=== PATIENT | male | born 1970 | race Caucasian/White ===

== ENCOUNTER 2017-04-07 00:32 | Emergency (ER) | payer MEDICAID ==
[~2017-04-07] VITALS: Ht 180.3 cm; Wt 100.0 kg
[2017-04-07] MEDS ORDERED: MORPHINE SULFATE 4 MG/ML CPJ (NOT FOR IM USE) IV STA (00:54)
[2017-04-07] MEDS ORDERED: ONDANSETRON HCL 4MG/2ML VIAL IV STA (00:54)
[2017-04-07] MEDS ORDERED: SODIUM CHLORIDE 0.9% 1,000 ML IV ONE (00:54)
[2017-04-07 01:53] LABS: BASOPHILS % 0.5 % (0.0-2.0); EOSINOPHILS % 1.5 % (0.0-5.0); HEMATOCRIT. 35.5 % (42.0-52.0); HEMOGLOBIN. 12.2 g/dL (14.0-18.0); MEAN CORPUSCULAR HEMOGLOBIN 31.5 pg (28.0-32.0); MEAN CORPUSCULAR VOLUME 91.3 fL (80.0-94.0); MEAN PLATELET VOLUME 8.1 fl (7.4-10.4); MONOCYTES % 8.4 % (2.0-8.0); NEUTROPHILS % 63.6 % (40.0-76.0); PLATELET 273 x1000/uL (130-400); RED BLOOD CELL COUNT 3.89 mill/uL (4.7-6.1); RED CELL DISTRIBUTION WIDTH 14.5 % (11.6-14.6)
[2017-04-07 02:06] LABS: CARBON DIOXIDE 25 mEq/L (21-32); CHLORIDE 108 mEq/L (98-107)
[2017-04-07 02:07] LABS: ETHANOL BLOOD < 10 mg/dL; TROPONIN I < 0.02 ng/mL (0.00-0.04)
[2017-04-07] MEDS ORDERED: MIDAZOLAM HCL 2 MG/2 ML VIAL IV ONE (02:15)
[2017-04-07 06:20] VITALS: BP 99/70
== END 2017-04-07 06:25 | disposition left against medical advice (07) ==
LOC: ER 00:51 → EDBEDREQTM 03:50 → EDBEDREQ 03:50 → ER 06:25 → CANBEDREQ 07:09
DX: T42.4X1A Poisoning by benzodiazepines, accidental (unintentional), initial encounter (principal); G93.40 Encephalopathy, unspecified; F41.9 Anxiety disorder, unspecified; Y92.89 Other specified places as the place of occurrence of the external cause
CPT/HCPCS: 36415; 70450; 71010; 72125; 80053; 84484; 85025; 93005; 96361; 96374; 96375; 99291; G0482; J2250; J2270; J2405; J7030; Z7610

== ENCOUNTER 2018-11-20 18:04 | Emergency (ER) | payer MEDICAID ==
[~2018-11-20] VITALS: Ht 167.6 cm; Wt 78.0 kg
[2018-11-20 18:20] VITALS: BP 110/80
== END 2018-11-20 20:25 | disposition left against medical advice (07) ==
LOC: ER 18:22
DX: Z53.21 Procedure and treatment not carried out due to patient leaving prior to being seen by health care provider (principal)

== ENCOUNTER 2022-03-08 00:40 | Emergency (ER) | payer MEDICAID ==
[~2022-03-08] VITALS: Ht 167.6 cm; Wt 79.0 kg
[~2022-03-08 00:40] MED LIST: IBUP-2028 PO; METH-818 PO; OLAN10TA32 PO; QUET25TA PO; RMST15 PO; TOPUD PO; TRAM50TA3 PO; ZOLP5TAB2 PO
[2022-03-08 01:16] VITALS: BP 111/69
== END 2022-03-09 03:02 | disposition home or self-care (01) ==
LOC: ER 00:40
DX: I33.0 Acute and subacute infective endocarditis (principal); Z00.00 Encounter for general adult medical examination without abnormal findings; Z59.00 Homelessness unspecified; F41.9 Anxiety disorder, unspecified; Z79.899 Other long term (current) drug therapy; F11.20 Opioid dependence, uncomplicated
CPT/HCPCS: 99281

== ENCOUNTER 2022-03-16 20:38 | Emergency (ER) | payer MEDICAID ==
[~2022-03-16] VITALS: Ht 165.1 cm; Wt 83.5 kg
[2022-03-16] MEDS: KCL 20MEQ/100ML X 2 FOR TOTAL KCL 40MEQ/200ML IV SCH (01:45)
[2022-03-16] MEDS ORDERED: SODIUM CHLORIDE 0.9% 1,000 ML IV ONE (21:45)
[2022-03-16] MEDS ORDERED: MAGNESIUM/ALUMINUM HYDROXIDE/SIMETHICONE 30ML UDC PO ONE (22:00)
[2022-03-16] MEDS ORDERED: ONDANSETRON HCL 4MG/2ML INJ IV ONE (22:00)
[2022-03-16 22:22] LABS: BASOPHILS % 0.3 % (0.0-2.0); EOSINOPHILS % 5.4 % (0.0-5.0); HEMATOCRIT. 31.7 % (42.0-52.0); HEMOGLOBIN. 10.8 g/dL (14.0-18.0); LYMPHOCYTES % 22.7 % (20.0-50.0); MEAN CORPUSCULAR HEMOGLOBIN 31.4 pg (28.0-32.0); MEAN CORPUSCULAR VOLUME 92.5 fL (80.0-94.0); MEAN PLATELET VOLUME 7.6 fl (7.4-10.4); MONOCYTES % 9.6 % (2.0-8.0); PLATELET 242 x1000/uL (130-400); RED BLOOD CELL COUNT 3.43 mill/uL (4.7-6.1); RED CELL DISTRIBUTION WIDTH 14.3 % (11.6-14.6)
[2022-03-16 22:31] LABS: CHLORIDE 122 mEq/L (98-107)
[2022-03-16 22:37] LABS: ETHANOL BLOOD < 10 mg/dL
[2022-03-16] MEDS ORDERED: CALCIUM GLUCONATE 100MG/ML 10ML VIAL IV NR (23:00)
[2022-03-16] MEDS ORDERED: MAGNESIUM 1 G PREMIX 100 ML IV NR (23:00)
[2022-03-16] MEDS ORDERED: POTASSIUM CHLORIDE INJ 40 MEQ in DEXT 5% WATER 250 ML IV ONE (23:00)
[2022-03-16] MEDS ORDERED: DEXTROSE 50% WATER 50ML SYRINGE IV NR (23:00)
[2022-03-17] MEDS: KCL 20MEQ/100ML X 2 FOR TOTAL KCL 40MEQ/200ML IV SCH (02:08)
[2022-03-17 07:00] VITALS: BP 140/82
[2022-03-17] MEDS ORDERED: LACT-247 PO (10:18)
[2022-03-17] MEDS ORDERED: POTA-205 PO (10:19)
== END 2022-03-17 07:38 | disposition left against medical advice (07) ==
LOC: ER 20:38 → EDBEDREQ 03-17 05:35 → EDBEDREQDT 03-17 05:35 → EDBEDREQTM 03-17 05:35 → CANRESERV 03-17 07:17 → ENRESERV 03-17 07:17 → ER 03-17 07:38 → CANBEDREQ 03-17 08:05
DX: E87.8 Other disorders of electrolyte and fluid balance, not elsewhere classified (principal); E87.6 Hypokalemia; E83.51 Hypocalcemia; E86.0 Dehydration; R63.0 Anorexia; D64.9 Anemia, unspecified; E46 Unspecified protein-calorie malnutrition; E16.2 Hypoglycemia, unspecified; F41.9 Anxiety disorder, unspecified; Z68.30 Body mass index [BMI] 30.0-30.9, adult; Z87.891 Personal history of nicotine dependence; Z98.890 Other specified postprocedural states
CPT/HCPCS: 36415; 80053; 80320; 82962; 85025; 96361; 96365; 96367; 96375; 99291; J0610; J3475; J3480; J7030; G0480

== ENCOUNTER 2022-03-25 16:02 | Emergency (ER) | payer MEDICAID ==
[~2022-03-25] VITALS: Ht 167.6 cm; Wt 101.0 kg
[~2022-03-25 16:02] MED LIST changes: +LACT-247 PO; +POTA-205 PO
[2022-03-25 16:03] VITALS: BP 118/77
[2022-03-25 17:28] LABS: BASOPHILS % 0.8 % (0.0-2.0); EOSINOPHILS % 6.6 % (0.0-5.0); HEMATOCRIT. 42.3 % (42.0-52.0); HEMOGLOBIN. 14.4 g/dL (14.0-18.0); LYMPHOCYTES % 31.4 % (20.0-50.0); MEAN CORPUSCULAR HEMOGLOBIN 31.2 pg (28.0-32.0); MEAN CORPUSCULAR VOLUME 91.6 fL (80.0-94.0); MEAN PLATELET VOLUME 7.2 fl (7.4-10.4); MONOCYTES % 8.6 % (2.0-8.0); NEUTROPHILS % 52.6 % (40.0-76.0); PLATELET 439 x1000/uL (130-400); RED BLOOD CELL COUNT 4.61 mill/uL (4.7-6.1); RED CELL DISTRIBUTION WIDTH 14.3 % (11.6-14.6)
[2022-03-25 17:41] LABS: CHLORIDE 101 mEq/L (98-107)
[2022-03-25] MEDS ORDERED: ALBUTEROL (0.083%) 2.5MG/3ML NEB HHN ONE (19:45)
[2022-03-25] MEDS ORDERED: ALBU6.7H9 INH (20:50)
[2022-03-25] MEDS ORDERED: AMOX1TAB16 MT (20:50)
[2022-03-25] MEDS ORDERED: AMOXICILLIN/POTASSIUM CLAVULANATE 875/125MG TAB PO ONE (21:00)
== END 2022-03-25 21:25 | disposition home or self-care (01) ==
LOC: ER 16:02
DX: R06.00 Dyspnea, unspecified (principal); I33.0 Acute and subacute infective endocarditis; F41.9 Anxiety disorder, unspecified; Z95.2 Presence of prosthetic heart valve; Z20.822 Contact with and (suspected) exposure to COVID-19
CPT/HCPCS: 36415; 71045; 80053; 83605; 83880; 84484; 85025; 87040; 87426; 93005; 94640; 99285; C9803; Z7610

== ENCOUNTER 2022-04-13 14:09 | Emergency (ER) | payer MEDICAID ==
[~2022-04-13] VITALS: Ht 167.6 cm; Wt 98.0 kg
[~2022-04-13 14:09] MED LIST changes: +ALBU6.7H9 INH; +AMOX1TAB16 MT
[2022-04-13 16:29] VITALS: BP 109/64
== END 2022-04-13 21:11 | disposition left against medical advice (07) ==
LOC: ER 14:09
DX: Z53.21 Procedure and treatment not carried out due to patient leaving prior to being seen by health care provider (principal)

== ENCOUNTER 2022-07-30 16:50 | Inpatient (IN) | payer MEDICAID ==
[~2022-07-30] VITALS: Ht 198.1 cm; Wt 82.1 kg
[2022-07-30] MEDS: DEXAMETHASONE 4MG/ML 1ML VIAL IV SCH (00:30)
[~2022-07-30 16:50] MED LIST changes: +ALBU6.7H3 INH; -ALBU6.7H9 INH
[2022-07-30] MEDS ORDERED: LEVOFLOXACIN 500MG PREMIX 100 ML IV ONE (19:45)
[2022-07-30 21:36] LABS: BASOPHILS % 0.5 % (0.0-2.0); HEMATOCRIT. 46.2 % (42.0-52.0); HEMOGLOBIN. 15.7 g/dL (14.0-18.0); MEAN CORPUSCULAR HEMOGLOBIN 32.7 pg (28.0-32.0); MEAN CORPUSCULAR VOLUME 96.4 fL (80.0-94.0); MEAN PLATELET VOLUME 8.1 fl (7.4-10.4); MONOCYTES % 7.7 % (2.0-8.0); NEUTROPHILS % 78.8 % (40.0-76.0); PLATELET 166 x1000/uL (130-400); RED BLOOD CELL COUNT 4.79 mill/uL (4.7-6.1); RED CELL DISTRIBUTION WIDTH 15.2 % (11.6-14.6)
[2022-07-30 21:45] LABS: CHLORIDE 99 mEq/L (98-107)
[2022-07-30] MEDS ORDERED: MAGNESIUM/ALUMINUM HYDROXIDE/SIMETHICONE 30ML UDC PO PRN (22:45)
[2022-07-30] MEDS ORDERED: DOCUSATE SODIUM 100MG CAPSULE PO PRN (22:45)
[2022-07-30] MEDS ORDERED: GUAIFENESIN 200MG/10ML SUGAR FREE UDC PO PRN (22:45)
[2022-07-30] MEDS ORDERED: CLONIDINE 0.1MG TABLET PO PRN (22:45)
[2022-07-30] MEDS ORDERED: ACETAMINOPHEN 325MG TABLET PO PRN (22:45)
[2022-07-30] MEDS ORDERED: ONDANSETRON HCL 4MG/2ML INJ IV PRN (22:45)
[2022-07-30] MEDS ORDERED: HYDROCODONE/ACETAMINOPHEN 5/325MG TABLET PO PRN (22:45)
[2022-07-30] MEDS ORDERED: NALOXONE HCL 0.4MG/ML VIAL IV PRN (23:15)
[2022-07-30] MEDS ORDERED: AZITHROMYCIN 500MG/250ML 250 ML IV NR (23:30)
[2022-07-30] MEDS ORDERED: PANTOPRAZOLE 40MG DR TABLET PO SCH (23:30)
[2022-07-30] MEDS ORDERED: CEFTRIAXONE 1 G PREMIX 50 ML IV SCH (23:30)
[2022-07-31] VITALS (17 sets, daily range): BP systolic 63–130; BP diastolic 49–76
[2022-07-31] MEDS: DEXAMETHASONE 4MG/ML 1ML VIAL IV SCH (02:06)
[2022-07-31] MEDS ORDERED: ENOXAPARIN 40MG/0.4ML SYR SUBCUT SCH (09:00)
[2022-07-31] MEDS ORDERED: IPRATROPIUM/ALBUTEROL 0.5-3(2.5)MG/3ML NEB HHN PRN (12:15)
[2022-07-31] MEDS ORDERED: METHADONE HCL 10MG TABLET PO SCH (14:30)
[2022-07-31] MEDS ORDERED: METHADONE HCL 10MG TABLET PO NR (15:00)
[2022-07-31] MEDS ORDERED: ALBUTEROL 6.7GM HFA INHALER ORI PRN (15:30)
[2022-07-31] MEDS: ACETAMINOPHEN 325MG TABLET PO PRN ×2 (16:01→20:42)
[2022-07-31 21:04] LABS: HEMATOCRIT. 48.6 % (42.0-52.0); HEMOGLOBIN. 16.4 g/dL (14.0-18.0); MEAN CORPUSCULAR HEMOGLOBIN 32.5 pg (28.0-32.0); MEAN CORPUSCULAR VOLUME 96.3 fL (80.0-94.0); MEAN PLATELET VOLUME 8.6 fl (7.4-10.4); PLATELET 145 x1000/uL (130-400); RED BLOOD CELL COUNT 5.05 mill/uL (4.7-6.1)
[2022-07-31 21:40] LABS: CHLORIDE 99 mEq/L (98-107)
[2022-07-31 21:41] LABS: CREATINE KINASE MB FRACTION 9.3 ng/mL (0.5-3.6)
[2022-07-31 21:42] LABS: BG BASE EXCESS -7.2 mmol/L (-2.0-2.0); BG CARBOXYHEMOGLOBIN 0.3 % (0.5-1.5); BG DEOXYHEMOGLOBIN 12.2 % (0.0-5.0); BG FRACTION INSPIRED OXYGEN 100; BG METHEMOGLOBIN 0.4 % (0.0-1.5); BG OXYGEN SATURATION 87.7 % (92.0-98.5); BG OXYHEMOGLOBIN 87.1 % (94.0-97.0); BG PCO2 40.8 mmHg (35.0-45.0); BG PH 7.286 (7.350-7.450); BG PO2 56.5 mmHg (75.0-100.0); BG SAMPLE SITE RIGHT RADIAL; BG TOTAL HEMOGLOBIN 18.2 g/dL (12.0-18.0); BG VENT MODE MASK - BIPAP
[2022-07-31 21:54] LABS: HDL CHOLESTEROL 15 mg/dL (40-59); LDL CHOLESTEROL 55 mg/dL (5-100)
[2022-07-31] MEDS ORDERED: FENTANYL 2500MCG/250ML PMX 250 ML IV PRN (22:00)
[2022-07-31] MEDS ORDERED: PHENYLEPHRINE 100 MG in DEXT 5% WATER 240 ML IV PRN (22:00)
[2022-07-31] MEDS ORDERED: PROPOFOL 10MG/ML 100ML 100 ML IV PRN (22:00)
[2022-07-31 23:00] LABS: PLATELET ESTIMATE NORMAL
[2022-08-01] VITALS (7 sets, daily range): BP systolic 39–153; BP diastolic 26–77
[2022-08-01] MEDS ORDERED: CEFTRIAXONE 1,000 MG in DEXTROSE 5% WATER 50 ML IV SCH ×2
[2022-08-01] MEDS ORDERED: AZITHROMYCIN 500 MG in DEXT 5% WATER 250 ML IV SCH ×2
[2022-08-01] MEDS ORDERED: NOREPINEPHRINE 32 MG in DEXT 5% WATER 218 ML IV PRN (01:45)
[2022-08-01] MEDS ORDERED: VASOPRESSIN 20 UNIT in SODIUM CHLORIDE 0.9% 99 ML IV PRN (01:45)
== END 2022-08-01 02:22 | DRG 720 ==
LOC: ER 16:50 → EDBEDREQTM 22:37 → EDBEDREQSVC 22:37 → EDBEDREQ 22:37 → 7EST 07-31 09:27 → ENRESERV 07-31 12:02 → MICUNO 07-31 18:50
PROVIDERS: ADMIT Internal Medicine; ATTEND Internal Medicine
PROC: 5A1935Z Respiratory Ventilation, Less than 24 Consecutive Hours (ICD-10-PCS; principal; 2022-07-31)
PROC: 0BH17EZ Insertion of Endotracheal Airway into Trachea, Via Natural or Artificial Opening (ICD-10-PCS; 2022-07-31)
PROC: 5A09357 Assistance with Respiratory Ventilation, Less than 24 Consecutive Hours, Continuous Positive Airway Pressure (ICD-10-PCS; 2022-07-31)
PROC: 5A0935A Assistance with Respiratory Ventilation, Less than 24 Consecutive Hours, High Flow/Velocity Cannula (ICD-10-PCS; 2022-07-31)
PROC: 06HY33Z Insertion of Infusion Device into Lower Vein, Percutaneous Approach (ICD-10-PCS; 2022-08-01)
DX: A41.89 Other specified sepsis (principal); J96.01 Acute respiratory failure with hypoxia; J12.82 Pneumonia due to coronavirus disease 2019; E44.0 Moderate protein-calorie malnutrition; U07.1 COVID-19; E87.1 Hypo-osmolality and hyponatremia; F41.9 Anxiety disorder, unspecified; F17.210 Nicotine dependence, cigarettes, uncomplicated; F19.90 Other psychoactive substance use, unspecified, uncomplicated; Z79.899 Other long term (current) drug therapy; Z90.49 Acquired absence of other specified parts of digestive tract; Z68.20 Body mass index [BMI] 20.0-20.9, adult
CPT/HCPCS: 31500; 36415; 36600; 71045; 80053; 80061; 82375; 82550; 82553; 82805; 82962; 84145; 84443; 84484; 85025; 87426; 92950; 93005; 93970; 94002; 94660; 99285; C9803; J0456; J1100; J1956; J2370; J2704; J3010; J3490; J7050; J7060; A4315